=== PATIENT | female | born 1950 | race Caucasian/White ===

== ENCOUNTER → 2018-04-21 | Day surgery (SDC) | payer OTHER, BC ==
[~2018-04-21] MED LIST: BACITRACIN IRRIGATION/NS 50,000 UNITS/1,000 ML BTL IRR ONE; BUPIVACAINE 0.5% 30 ML SDV ONE; DIAZEPAM 5 MG TAB PO ONE; LIDO/EPI 1% **for epidural** 30 ML SDV ONE; LIDOCAINE 1% 300 MG/30 ML SDV ONE; MIDAZOLAM 2 MG/2 ML VIAL ONE; NS 1,000 ML IV ONE; ceFAZolin 2 GM/DEXTROSE 100 ML IV ONE; diphenhydrAMINE 25 MG CAP PO ONE; fentaNYL 100 MCG/2 ML INJ ONE
--- NOTE | 2018-04-21 13:13 | PDPROPOC ---
Sedation Plan of Care Sedation Plan of Care: vital signs stable, mental status noted, patient educated of risks, benefits, alternatives, patient can tolerate sedation ASA Classification: ASA 2 Planned drugs: fentanyl, midazolam Mallampati Score: Class 2 Mallampati Reference Image: Patient passed 3-3-2 rule?: Yes
--- NOTE | 2018-04-21 13:13 | PDHPUP ---
History & Physical Update H&P update statement: This history and physical update is based on an assessment of the patient which was completed after admission or registration (within 24 hours), but prior to the surgery/procedure. H&P update: H&P reviewed & patient examined, no change in patient's condition since H&P completed
[2018-04-21 13:14] LABS: PROTIME(PATIENT) 12.8 SEC (12.0-15.0)
[2018-04-21 14:36] LABS: PLATELET COUNT 289 10^3/uL (150-400)
--- NOTE | 2018-04-21 15:19 | SUROPNOTE ---
[facility] Operative Report - Surgery PROCEDURE: (1) Fluoroscopic review of the old pacer location and leads (2) Old generator explant and new pacer generator implant INDICATIONS: (1) Pacer at [facility] PROCEDURE DETAILS: After consents were obtained, and risks were discussed, the patient was brought to the cardiac public works laborer and placed on the table in usual sterile fashion. Fluoroscopic review of the old generator to isolate both lead location and position of the pacer was undertaken. The old generator had an exceptionally high location, resting of the left collar bone. Lidocaine was placed surrounding the generator. The pocket was created with #12 blade and bovie. The old generator was exposed and explanted without difficulty. The atrial and ventricular leads were interrogated (with awareness that the patient is chronically in atrial fibrillation). Atrial lead interrogation: M# [id number] S# [id number] with P waves of 1.4 mV and Imp of 532 ohms Ventricular lead interrogation: M# [id number] S# [id number] with R waves of 24.4 mV, pulse width of 0.5 ms, and voltage of 0.6 V. Current of 1.8 mA and Imp of 482 ohms The old generator was explanted ([employer]onic S# [id number]) A raytech soaked in Bacitracin was placed in the pocket. Given the location of the pacer with respect to the patient's clavicle, a pocket revision was performed after the raytech was removed to drop the device down, so as to not be touching bone. The interior aspect of the pacer capsule was incised to allow blunt dissection and expansion inferiorly. Haemostasis was achieved without difficulty and the pocket was then flushed with bacitracin. The new generator was sutured into the pocket with silk New generator Medtronic Model#: [id number] S# [id number] Fluoroscopic review of the device was performed to ensure better placement. The pocket was then closed with 2-0, 3-0 and 4-0. No complications were appreciated. No CXR is indicated Patient to be discharged to home this evening Patient was recovered in the CVC.
--- NOTE | 2018-04-21 18:56 | CPEKG ---
Test Reason : OPEN Blood Pressure : / mmHG Vent. Rate : 068 BPM Atrial Rate : 000 BPM P-R Int : 204 ms QRS Dur : 100 ms QT Int : 415 ms P-R-T Axes : 257 008 061 degrees QTc Int : 442 ms Afib/flut and V-paced complexes likely unipolar ventricular pacing Confirmed by Mauricio Guzman ([id number]) on 04/21/2018 6:56:07 PM Referred By: Elvis London Confirmed By:Mauricio Guzman
== END | disposition home or self-care (01) ==
LOC: FCATH 11:34
PROVIDERS: ATTEND Internal Medicine Cardiovascular Disease
DX: Z45.010 Encounter for checking and testing of cardiac pacemaker pulse generator [battery] (principal); I48.91 Unspecified atrial fibrillation; I10 Essential (primary) hypertension; E03.9 Hypothyroidism, unspecified; Z79.01 Long term (current) use of anticoagulants
CPT/HCPCS: C1785; J0690; J2250; J3010